=== PATIENT | male | born 1985 | race Caucasian/White ===

== ENCOUNTER 2019-01-14 18:13 | Emergency (ER) | payer BC ==
[~2019-01-14] VITALS: Ht 177.8 cm; Wt 69.4 kg
[2019-01-14 18:54] VITALS: BP 135/85
[2019-01-14] MEDS ORDERED: IBUPROFEN 400 MG TABLET ONE (19:30)
[2019-01-14] MEDS ORDERED: IBUPROFEN 400 MG TABLET PO ONE (19:30)
== END 2019-01-14 19:32 | disposition home or self-care (01) ==
LOC: ER 18:13
DX: S63.591A Other specified sprain of right wrist, initial encounter (principal); I10 Essential (primary) hypertension; F17.200 Nicotine dependence, unspecified, uncomplicated; Z60.2 Problems related to living alone; X58.XXXA Exposure to other specified factors, initial encounter; Y93.89 Activity, other specified; Y92.89 Other specified places as the place of occurrence of the external cause; Y99.8 Other external cause status
CPT/HCPCS: 73130-TC